=== PATIENT | female | born 1990 | race Asian ===

== ENCOUNTER 2017-06-29 18:17 | Emergency (ER) | payer SELFPAY, MEDICAID | END 2017-06-29 19:00 | disposition left against medical advice (07) | LOC: E/R 18:17 | DX: Z53.21 Procedure and treatment not carried out due to patient leaving prior to being seen by health care provider (principal) ==

== ENCOUNTER 2017-10-23 12:27 | Outpatient (CLI) | payer OTHER ==
[2017-10-23] MEDS: LACTATED RINGER'S 1,000 ML IV ×2 (14:18→16:36)
[2017-10-23] MEDS: ONDANSETRON 4 MG INJ IV (14:25)
[2017-10-23 14:53] LABS: ADD MAN DIFF? NO
[2017-10-23 14:56] LABS: BASOPHILS % 0.2 % (0.0-2.0); EOSINOPHILS % 0.4 % (0.0-7.0); HEMOGLOBIN 11.3 g/dl (12.0-16.0); LYMPHOCYTES # 2.1 10^3/ul (0.8-2.9); LYMPHOCYTES % 41.2 % (15.0-51.0); MEAN CORPUSCULAR HEMOGLOBIN 27.6 pg (29.0-33.0); MEAN CORPUSCULAR HGB CONC 33.2 g/dl (32.0-37.0); MEAN CORPUSCULAR VOLUME 83.1 fl (82.0-101.0); MEAN PLATELET VOLUME 10.4 fl (7.4-10.4); MONOCYTE # 0.4 10^3/ul (0.3-0.9); MONOCYTES % 7.1 % (0.0-11.0); NEUTROPHIL # 2.7 10^3/ul (1.6-7.5); NEUTROPHILS % 50.9 % (39.0-77.0); PLATELET COUNT 267 10^3/UL (140-415); RED BLOOD COUNT 4.09 10^6/ul (4.20-5.40); RED CELL DISTRIBUTION WIDTH 13.4 % (11.5-14.5)
[2017-10-23 14:56] LABS: WHITE BLOOD COUNT 5.2 10^3/ul (4.8-10.8)
[2017-10-23 15:14] LABS: ALANINE AMINOTRANSFERASE 10 IU/L (13-69); ALBUMIN 3.5 g/dl (3.3-4.9); ALBUMIN/GLOBULIN RATIO 1.12; ALKALINE PHOSPHATASE 120 IU/L (42-121); ANION GAP 13 (8-16); ASPARTATE AMINO TRANSFERASE 24 IU/L (15-46); BILIRUBIN,INDIRECT 0.3 mg/dl (0-1.1); BILIRUBIN,TOTAL 0.3 mg/dl (0.2-1.3); BLOOD UREA NITROGEN 3 mg/dl (7-20); CALCIUM 8.4 mg/dl (8.4-10.2); CARBON DIOXIDE 23 mmol/L (21-31); CHLORIDE 105 mmol/L (97-110); CREATININE 0.45 mg/dl (0.44-1.00); GLUCOSE 80 mg/dl (70-220); POTASSIUM 3.6 mmol/L (3.5-5.1); SODIUM 137 mmol/L (135-144); TOTAL PROTEIN 6.6 g/dl (6.1-8.1); URIC ACID 4.8 mg/dl (3.1-7.9)
[2017-10-23 15:17] LABS: ADD UMIC YES; UR ASCORBIC ACID NEGATIVE (NEGATIVE); UR BACTERIA FEW /HPF (NONE SEEN); UR BILIRUBIN (Dip) NEGATIVE (NEGATIVE); UR BLOOD (Dip) NEGATIVE (NEGATIVE); UR CLARITY SLIGHTLY CLOUDY (CLEAR); UR COLOR YELLOW (YELLOW); UR GLUCOSE (Dip) NEGATIVE (NEGATIVE); UR KETONES (Dip) NEGATIVE (NEGATIVE); UR LEUKOCYTE ESTERASE (Dip) TRACE Leu/ul (NEGATIVE); UR MUCUS MANY /HPF (NONE SEEN); UR NITRITE (Dip) NEGATIVE (NEGATIVE); UR RBC 2 /HPF (0-5); UR SQUAMOUS EPITHELIAL CELL MODERATE /HPF (FEW); UR TOTAL PROTEIN (Dip) 1+ mg/dl (NEGATIVE); UR UROBILINOGEN (Dip) 2+ mg/dL (NEGATIVE); UR WBC 6 /HPF (0-5)
[2017-10-23] MEDS ORDERED: PYRIDOXINE 100 MG INJ IM (16:30)
[2017-10-23] MEDS ORDERED: PYRIDOXINE 100 MG INJ IV (17:00)
[2017-10-23] MEDS ORDERED: PYRIDOXINE IM (17:00)
[2017-10-23] MEDS ORDERED: SOD CHLORIDE 0.9% IM (17:00)
[2017-10-23] MEDS: SOD CHLORIDE 0.9% IVPB (17:10)
[2017-10-23] MEDS: PYRIDOXINE IVPB (17:10)
[2017-10-23 18:28] LABS: AMPHETAMINE/METHAMPHETAMINE Negative (NEGATIVE); BARBITURATES Negative (NEGATIVE); BENZODIAZEPINES Negative (NEGATIVE); CANNABINOIDS Negative (NEGATIVE); COCAINE Negative (NEGATIVE); OPIATES Negative (NEGATIVE)
== END 2017-10-23 19:59 | disposition home or self-care (01) ==
LOC: OBT 12:27 → L-D 12:29 → OBT 19:59
DX: O40.2XX0 Polyhydramnios, second trimester, not applicable or unspecified (principal); O32.1XX0 Maternal care for breech presentation, not applicable or unspecified; O21.0 Mild hyperemesis gravidarum; Z3A.27 27 weeks gestation of pregnancy
CPT/HCPCS: 36415; 76818; 80053; 80307; 81001; 84560; 85025; 87086; 96360; 96361

== ENCOUNTER 2017-12-17 05:45 | Outpatient (CLI) | payer OTHER ==
[2017-12-17] MEDS: LACTATED RINGER'S 1,000 ML IV* ×2 (06:50→08:26)
[2017-12-17] MEDS: ONDANSETRON 4 MG INJ IV (06:51)
[2017-12-17 07:54] LABS: ADD UMIC NO; UR ASCORBIC ACID 20 mg/dL (NEGATIVE); UR BILIRUBIN (Dip) NEGATIVE (NEGATIVE); UR BLOOD (Dip) NEGATIVE (NEGATIVE); UR CLARITY CLEAR (CLEAR); UR COLOR YELLOW (YELLOW); UR GLUCOSE (Dip) NEGATIVE (NEGATIVE); UR KETONES (Dip) NEGATIVE (NEGATIVE); UR LEUKOCYTE ESTERASE (Dip) NEGATIVE Leu/ul (NEGATIVE); UR NITRITE (Dip) NEGATIVE (NEGATIVE); UR SPECIFIC GRAVITY (Dip) 1.011 (1.003-1.030); UR TOTAL PROTEIN (Dip) NEGATIVE (NEGATIVE); UR UROBILINOGEN (Dip) 1+ mg/dL (NEGATIVE)
[2017-12-17 08:26] LABS: RUPTURE FETAL MEMBRANES NEGATIVE (NEGATIVE)
== END 2017-12-17 10:01 | disposition home or self-care (01) ==
LOC: OBT 05:45 → L-D 05:45 → OBT 10:01
DX: O21.2 Late vomiting of pregnancy (principal); Z3A.35 35 weeks gestation of pregnancy
CPT/HCPCS: 36415; 76816; 76818; 81003; 84112; 87086; 96360; 96361

== ENCOUNTER 2017-12-17 10:34 | Emergency (ER) | payer OTHER ==
[2017-12-17] MEDS: ONDANSETRON 4 MG INJ IV (10:57)
[2017-12-17] MEDS: morphine 4 MG/ML VIAL IV ×2 (10:58→14:07)
[2017-12-17 11:08] LABS: ADD MAN DIFF? NO
[2017-12-17 11:10] LABS: BASOPHILS % 0.2 % (0.0-2.0); EOSINOPHILS % 0.2 % (0.0-7.0); HEMATOCRIT 35.4 % (37.0-47.0); HEMOGLOBIN 11.8 g/dl (12.0-16.0); LYMPHOCYTES # 1.6 10^3/ul (0.8-2.9); LYMPHOCYTES % 26.2 % (15.0-51.0); MEAN CORPUSCULAR HGB CONC 33.3 g/dl (32.0-37.0); MEAN PLATELET VOLUME 10.2 fl (7.4-10.4); MONOCYTE # 0.4 10^3/ul (0.3-0.9); MONOCYTES % 6.9 % (0.0-11.0); NEUTROPHIL # 4.1 10^3/ul (1.6-7.5); NEUTROPHILS % 66.2 % (39.0-77.0); PLATELET COUNT 250 10^3/UL (140-415); RED BLOOD COUNT 4.37 10^6/ul (4.20-5.40); RED CELL DISTRIBUTION WIDTH 13.7 % (11.5-14.5)
[2017-12-17 11:10] LABS: WHITE BLOOD COUNT 6.2 10^3/ul (4.8-10.8)
[2017-12-17 11:34] LABS: ALANINE AMINOTRANSFERASE 25 IU/L (13-69); ALBUMIN 3.1 g/dl (3.3-4.9); ALBUMIN/GLOBULIN RATIO 1.03; ALKALINE PHOSPHATASE 184 IU/L (42-121); ANION GAP 12 (8-16); ASPARTATE AMINO TRANSFERASE 13 IU/L (15-46); BILIRUBIN,INDIRECT 0.3 mg/dl (0-1.1); BILIRUBIN,TOTAL 0.3 mg/dl (0.2-1.3); BLOOD UREA NITROGEN 3 mg/dl (7-20); CALCIUM 8.6 mg/dl (8.4-10.2); CARBON DIOXIDE 24 mmol/L (21-31); CHLORIDE 107 mmol/L (97-110); CREATININE 0.49 mg/dl (0.44-1.00); GLUCOSE 96 mg/dl (70-220); LIPASE 46 U/L (23-300); POTASSIUM 3.7 mmol/L (3.5-5.1); SODIUM 139 mmol/L (135-144); TOTAL PROTEIN 6.1 g/dl (6.1-8.1)
== END 2017-12-18 10:09 | disposition home or self-care (01) ==
LOC: E/R 12-18 10:09
DX: O99.613 Diseases of the digestive system complicating pregnancy, third trimester (principal); K80.50 Calculus of bile duct without cholangitis or cholecystitis without obstruction; Z3A.35 35 weeks gestation of pregnancy
CPT/HCPCS: 36415; 76705; 80053; 83690; 85025; 96374; 96375; 96376; 99285-25

== ENCOUNTER 2017-12-20 13:45 | Inpatient (IN) | payer OTHER ==
[2017-12-20] MEDS: LACTATED RINGER'S 1,000 ML IV ×2 (14:11→17:51)
[2017-12-20] MEDS: BUTORPHANOL 2 MG INJ IV ×2 (14:16→16:42)
[2017-12-20] MEDS: DIPHENHYDRAMINE 50 MG CAP PO (18:30)
[2017-12-20] MEDS: MEPERIDINE 50 MG INJ IM (19:00)
[2017-12-20 19:34] LABS: ALANINE AMINOTRANSFERASE 30 IU/L (13-69); ALBUMIN 3.1 g/dl (3.3-4.9); ALKALINE PHOSPHATASE 222 IU/L (42-121); ASPARTATE AMINO TRANSFERASE 43 IU/L (15-46); BILIRUBIN,INDIRECT 0.5 mg/dl (0-1.1); TOTAL PROTEIN 6.3 g/dl (6.1-8.1)
[2017-12-20 19:39] LABS: AMYLASE < 30 U/L (11-123)
[2017-12-20 19:41] LABS: LIPASE 16 U/L (23-300)
[2017-12-20 21:56] LABS: ADD MAN DIFF? NO
[2017-12-20 21:59] LABS: EOSINOPHILS % 0.3 % (0.0-7.0); HEMATOCRIT 36.8 % (37.0-47.0); LYMPHOCYTES # 1.2 10^3/ul (0.8-2.9); LYMPHOCYTES % 19.1 % (15.0-51.0); MEAN CORPUSCULAR HEMOGLOBIN 26.5 pg (29.0-33.0); MEAN CORPUSCULAR HGB CONC 32.6 g/dl (32.0-37.0); MEAN CORPUSCULAR VOLUME 81.2 fl (82.0-101.0); MEAN PLATELET VOLUME 10.8 fl (7.4-10.4); MONOCYTE # 0.4 10^3/ul (0.3-0.9); MONOCYTES % 6.7 % (0.0-11.0); NEUTROPHIL # 4.5 10^3/ul (1.6-7.5); NEUTROPHILS % 73.6 % (39.0-77.0); PLATELET COUNT 292 10^3/UL (140-415); RED BLOOD COUNT 4.53 10^6/ul (4.20-5.40); RED CELL DISTRIBUTION WIDTH 13.9 % (11.5-14.5)
[2017-12-20 21:59] LABS: WHITE BLOOD COUNT 6.1 10^3/ul (4.8-10.8)
[2017-12-20] MEDS ORDERED: OXYTOCIN 30 UNITS/LR 500 ML IV ×2 (22:00)
[2017-12-20] MEDS ORDERED: CARBOPROST 250 MCG INJ IM (22:00)
[2017-12-20] MEDS ORDERED: METHYLERGONOVINE 0.2 MG INJ IM (22:00)
[2017-12-20] MEDS ORDERED: MISOPROSTOL 200 MCG TAB PR (22:00)
[2017-12-20] MEDS ORDERED: LIDOCAINE 1% (MPF) 30 ML INJ INJ (22:00)
[2017-12-20] MEDS ORDERED: IBUPROFEN 600 MG TAB PO (22:00)
[2017-12-20 22:03] LABS: INR 0.94; PARTIAL THROMBOPLASTIN TIME 35.4 Sec (25.0-35.0); PROTIME 12.7 Sec (11.9-14.9)
[2017-12-20 22:12] LABS: ADD UMIC YES; UR ASCORBIC ACID 40 mg/dL (NEGATIVE); UR BACTERIA FEW /HPF (NONE SEEN); UR BILIRUBIN (Dip) 2+ mg/dL (NEGATIVE); UR BLOOD (Dip) NEGATIVE (NEGATIVE); UR CLARITY CLEAR (CLEAR); UR COLOR AMBER (YELLOW); UR GLUCOSE (Dip) NEGATIVE (NEGATIVE); UR KETONES (Dip) 2+ mg/dL (NEGATIVE); UR LEUKOCYTE ESTERASE (Dip) NEGATIVE Leu/ul (NEGATIVE); UR MUCUS FEW /HPF (NONE SEEN); UR NITRITE (Dip) NEGATIVE (NEGATIVE); UR RBC 1 /HPF (0-5); UR SQUAMOUS EPITHELIAL CELL FEW /HPF (FEW); UR TOTAL PROTEIN (Dip) 1+ mg/dl (NEGATIVE); UR UROBILINOGEN (Dip) 2+ mg/dL (NEGATIVE); UR WBC 6 /HPF (0-5)
[2017-12-20] MEDS: DEXTROSE 5% IVPB (22:33)
[2017-12-20] MEDS: PENICILLIN K IVPB (22:33)
[2017-12-20 22:39] LABS: HEPATITIS B SURFACE ANTIGEN NEGATIVE (NEGATIVE)
[2017-12-20] MEDS: morphine 2 MG INJ IV (23:20)
[2017-12-20] MEDS: ONDANSETRON 4 MG INJ IV (23:38)
[2017-12-21] MEDS: BETAMET NA PHOS/AC(6 MG/ML) 5ML INJ IM (01:02)
[2017-12-21] MEDS: DEXTROSE 5% IVPB ×3 (02:45→10:51)
[2017-12-21] MEDS: PENICILLIN K IVPB ×3 (02:45→10:51)
[2017-12-21] MEDS: LACTATED RINGER'S 1,000 ML IV ×4 (03:16→08:58)
[2017-12-21] MEDS ORDERED: FENTAnyl 2MCG/ML-ROPIV 0.2% 100 ML (03:48)
[2017-12-21] MEDS ORDERED: MISOPROSTOL 200 MCG TAB PR (07:30)
[2017-12-21] MEDS ORDERED: METHYLERGONOVINE 0.2 MG INJ IM (07:30)
[2017-12-21 10:17] LABS: ADD MAN DIFF? NO
[2017-12-21 10:19] LABS: WHITE BLOOD COUNT 4.1 10^3/ul (4.8-10.8)
[2017-12-21 10:19] LABS: HEMATOCRIT 35.8 % (37.0-47.0); HEMOGLOBIN 11.8 g/dl (12.0-16.0); LYMPHOCYTES # 0.9 10^3/ul (0.8-2.9); LYMPHOCYTES % 21.7 % (15.0-51.0); MEAN CORPUSCULAR HEMOGLOBIN 26.6 pg (29.0-33.0); MEAN CORPUSCULAR VOLUME 80.8 fl (82.0-101.0); MEAN PLATELET VOLUME 10.1 fl (7.4-10.4); MONOCYTE # 0.1 10^3/ul (0.3-0.9); MONOCYTES % 2.7 % (0.0-11.0); NEUTROPHIL # 3.1 10^3/ul (1.6-7.5); NEUTROPHILS % 75.1 % (39.0-77.0); PLATELET COUNT 282 10^3/UL (140-415); RED BLOOD COUNT 4.43 10^6/ul (4.20-5.40); RED CELL DISTRIBUTION WIDTH 13.6 % (11.5-14.5)
[2017-12-21] MEDS: OXYTOCIN 30 UNITS/LR 500 ML IV ×3 (10:30→16:45)
[2017-12-21 10:52] LABS: LACTIC ACID 1.2 mmol/L (0.5-2.0)
[2017-12-21] MEDS ORDERED: DIBUCAINE 1% 30 GM OINT TOP (13:30)
[2017-12-21] MEDS ORDERED: OXYCODONE/ASPIRIN (4.88/325) TAB PO (13:30)
[2017-12-21] MEDS ORDERED: ACETAMINOPHEN 325 MG TAB PO (13:30)
[2017-12-21] MEDS ORDERED: BENZOCAINE 20% 56 ML SPRAY TOP (13:30)
[2017-12-21] MEDS ORDERED: ONDANSETRON 4 MG INJ IV (13:30)
[2017-12-21] MEDS ORDERED: LANOLIN 7 GM TUBE TOP (13:30)
[2017-12-21] MEDS ORDERED: HYDROCODONE/APAP (5/325) TAB PO (13:30)
[2017-12-21] MEDS ORDERED: WITCH HAZEL/GLYCERIN PAD PR (13:30)
[2017-12-21] MEDS: OXYCODONE/ASPIRIN (4.88/325) TAB PO (13:44)
[2017-12-21] MEDS: IBUPROFEN 600 MG TAB PO ×2 (18:00→23:54)
[2017-12-21] MEDS: SENNA/DOCUSATE NA (8.6MG/50MG) TAB PO (21:40)
[2017-12-21 22:07] LABS: RAPID PLASMA REAGIN NONREACTIVE (NR)
[2017-12-22] MEDS ORDERED: BETAMET NA PHOS/AC(6 MG/ML) 5ML INJ IM
[2017-12-22] MEDS: OXYCODONE/ASPIRIN (4.88/325) TAB PO ×3 (04:10→17:02)
[2017-12-22] MEDS: IBUPROFEN 600 MG TAB PO ×3 (06:01→17:41)
[2017-12-22] MEDS: SENNA/DOCUSATE NA (8.6MG/50MG) TAB PO ×2 (11:24→21:00)
[2017-12-22] MEDS: HYDROCODONE/APAP (5/325) TAB PO (11:27)
[2017-12-22] MEDS ORDERED: LACTATED RINGER'S 1,000 ML IV (18:00)
[2017-12-22] MEDS: BUTORPHANOL 2 MG INJ IV (18:03)
[2017-12-22] MEDS: DEXTROSE 5%-0.45% NACL 1,000 ML IV (18:32)
[2017-12-22] MEDS: PIPER-TAZO 3.375 GM IV (PMX) 100 ML IVPB (18:32)
[2017-12-22] MEDS: morphine 2 MG INJ IV (22:26)
[2017-12-23] MEDS: DEXTROSE 5%-0.45% NACL 1,000 ML IV ×2 (05:01→15:40)
[2017-12-23] MEDS: IBUPROFEN 600 MG TAB PO ×4 (05:55→17:39)
[2017-12-23] MEDS: PIPER-TAZO 3.375 GM IV (PMX) 100 ML IVPB ×5 (06:00→23:47)
[2017-12-23] MEDS: morphine 2 MG INJ IV ×6 (07:40→23:37)
[2017-12-23] MEDS: MEASLES,MUMPS,RUBELLA VACCINE INJ SC* (09:00)
[2017-12-23] MEDS: SENNA/DOCUSATE NA (8.6MG/50MG) TAB PO ×2 (09:00→21:00)
[2017-12-23 09:14] LABS: ADD MAN DIFF? NO
[2017-12-23 09:23] LABS: BASOPHILS % 0.3 % (0.0-2.0); EOSINOPHILS % 0.3 % (0.0-7.0); HEMOGLOBIN 11.5 g/dl (12.0-16.0); LYMPHOCYTES # 1.2 10^3/ul (0.8-2.9); LYMPHOCYTES % 33.1 % (15.0-51.0); MEAN CORPUSCULAR HEMOGLOBIN 25.7 pg (29.0-33.0); MEAN CORPUSCULAR HGB CONC 31.9 g/dl (32.0-37.0); MEAN CORPUSCULAR VOLUME 80.4 fl (82.0-101.0); MEAN PLATELET VOLUME 10.1 fl (7.4-10.4); MONOCYTE # 0.4 10^3/ul (0.3-0.9); MONOCYTES % 10.1 % (0.0-11.0); NEUTROPHILS % 55.6 % (39.0-77.0); PLATELET COUNT 324 10^3/UL (140-415); RED BLOOD COUNT 4.48 10^6/ul (4.20-5.40); RED CELL DISTRIBUTION WIDTH 14.1 % (11.5-14.5)
[2017-12-23 09:23] LABS: WHITE BLOOD COUNT 3.6 10^3/ul (4.8-10.8)
[2017-12-23 09:42] LABS: ALANINE AMINOTRANSFERASE 61 IU/L (13-69); ALBUMIN 2.6 g/dl (3.3-4.9); ALBUMIN/GLOBULIN RATIO 0.89; ALKALINE PHOSPHATASE 209 IU/L (42-121); ANION GAP 13 (8-16); ASPARTATE AMINO TRANSFERASE 84 IU/L (15-46); BILIRUBIN,INDIRECT 0.3 mg/dl (0-1.1); BILIRUBIN,TOTAL 0.3 mg/dl (0.2-1.3); BLOOD UREA NITROGEN 5 mg/dl (7-20); CALCIUM 8.1 mg/dl (8.4-10.2); CARBON DIOXIDE 26 mmol/L (21-31); CHLORIDE 105 mmol/L (97-110); CREATININE 0.62 mg/dl (0.44-1.00); GLUCOSE 83 mg/dl (70-220); POTASSIUM 3.5 mmol/L (3.5-5.1); SODIUM 140 mmol/L (135-144); TOTAL PROTEIN 5.5 g/dl (6.1-8.1)
[2017-12-23 09:42] LABS: MAGNESIUM 1.6 mg/dl (1.7-2.5)
[2017-12-23 09:47] LABS: LACTIC ACID 1.3 mmol/L (0.5-2.0)
[2017-12-23 10:10] LABS: HAAIG REFLEX REFLEX FILED
[2017-12-23 10:55] LABS: HEPATITIS B SURFACE ANTIGEN NEGATIVE (NEGATIVE)
[2017-12-23 11:12] LABS: HEPATITIS B CORE ANTIBODY NEGATIVE (NEGATIVE); HEPATITIS C VIRAL ANTIBODY NEGATIVE (NEGATIVE)
[2017-12-23] MEDS: MAGNESIUM SULFATE 2 GM/50 ML 50 ML IVPB (12:42)
[2017-12-23 15:25] LABS: LIPASE 1841 U/L (23-300)
[2017-12-23] MEDS: SOD CHLORIDE 0.45% 1,000 ML IV ×2 (18:18→23:15)
[2017-12-24] MEDS: morphine 2 MG INJ IV ×4 (04:26→14:33)
[2017-12-24] MEDS: SOD CHLORIDE 0.45% 1,000 ML IV ×2 (04:27→09:21)
[2017-12-24] MEDS: PIPER-TAZO 3.375 GM IV (PMX) 100 ML IVPB ×3 (06:00→18:04)
[2017-12-24] MEDS: IBUPROFEN 600 MG TAB PO ×4 (06:00→18:00)
[2017-12-24 06:20] LABS: ADD MAN DIFF? NO
[2017-12-24 06:29] LABS: BASOPHILS % 0.2 % (0.0-2.0); EOSINOPHILS % 0.4 % (0.0-7.0); HEMATOCRIT 35.9 % (37.0-47.0); HEMOGLOBIN 11.6 g/dl (12.0-16.0); LYMPHOCYTES # 2.2 10^3/ul (0.8-2.9); LYMPHOCYTES % 41.4 % (15.0-51.0); MEAN CORPUSCULAR HEMOGLOBIN 26.3 pg (29.0-33.0); MEAN CORPUSCULAR HGB CONC 32.3 g/dl (32.0-37.0); MEAN CORPUSCULAR VOLUME 81.4 fl (82.0-101.0); MEAN PLATELET VOLUME 9.7 fl (7.4-10.4); MONOCYTE # 0.5 10^3/ul (0.3-0.9); MONOCYTES % 8.9 % (0.0-11.0); NEUTROPHIL # 2.6 10^3/ul (1.6-7.5); NEUTROPHILS % 48.7 % (39.0-77.0); PLATELET COUNT 320 10^3/UL (140-415); RED BLOOD COUNT 4.41 10^6/ul (4.20-5.40); RED CELL DISTRIBUTION WIDTH 13.7 % (11.5-14.5)
[2017-12-24 06:29] LABS: WHITE BLOOD COUNT 5.3 10^3/ul (4.8-10.8)
[2017-12-24 06:57] LABS: LIPASE 233 U/L (23-300)
[2017-12-24 06:58] LABS: ALANINE AMINOTRANSFERASE 83 IU/L (13-69); ALBUMIN 2.7 g/dl (3.3-4.9); ALBUMIN/GLOBULIN RATIO 0.93; ALKALINE PHOSPHATASE 195 IU/L (42-121); ANION GAP 13 (8-16); ASPARTATE AMINO TRANSFERASE 94 IU/L (15-46); BILIRUBIN,INDIRECT 0.3 mg/dl (0-1.1); BILIRUBIN,TOTAL 0.3 mg/dl (0.2-1.3); BLOOD UREA NITROGEN 6 mg/dl (7-20); CALCIUM 8.1 mg/dl (8.4-10.2); CARBON DIOXIDE 27 mmol/L (21-31); CHLORIDE 103 mmol/L (97-110); CREATININE 0.67 mg/dl (0.44-1.00); GLUCOSE 80 mg/dl (70-220); POTASSIUM 3.8 mmol/L (3.5-5.1); SODIUM 139 mmol/L (135-144); TOTAL PROTEIN 5.6 g/dl (6.1-8.1)
[2017-12-24 07:00] LABS: ANION GAP 9 (8-16); BLOOD UREA NITROGEN 4 mg/dl (7-20); CALCIUM 8.3 mg/dl (8.4-10.2); CARBON DIOXIDE 28 mmol/L (21-31); CHLORIDE 104 mmol/L (97-110); CREATININE 0.66 mg/dl (0.44-1.00); GLUCOSE 77 mg/dl (70-220); MAGNESIUM 1.9 mg/dl (1.7-2.5); PHOSPHORUS 5.2 mg/dl (2.5-4.9); POTASSIUM 3.9 mmol/L (3.5-5.1); SODIUM 137 mmol/L (135-144)
[2017-12-24] MEDS: SENNA/DOCUSATE NA (8.6MG/50MG) TAB PO ×2 (09:00→23:45)
[2017-12-24] MEDS: DEXTROSE 5%-0.45% NACL 1,000 ML IV (12:59)
[2017-12-24] MEDS ORDERED: PROPOFOL 20 ML (21:39)
[2017-12-24] MEDS ORDERED: LIDOCAINE 2% (SDV) 5 ML INJ (21:39)
[2017-12-24] MEDS ORDERED: ROCURONIUM 50 MG INJ (21:39)
[2017-12-24] MEDS ORDERED: HYDROmorphONE 2 MG/ML SYG (21:40)
[2017-12-24] MEDS ORDERED: CEFAZOLIN 1 GM INJ (21:50)
[2017-12-24] MEDS ORDERED: ONDANSETRON 4 MG INJ (21:50)
[2017-12-24] MEDS ORDERED: DEXAMETHASONE 4 MG/ML 1 ML INJ (21:50)
[2017-12-24] MEDS ORDERED: ACETAMINOPHEN 1000MG/100ML IV 100 ML (22:09)
[2017-12-24] MEDS ORDERED: ROPIVACAINE 0.5 % 30 ML VIAL (22:12)
[2017-12-24] MEDS ORDERED: SCOPOLAMINE 1.5 MG PATCH (22:21)
[2017-12-24] MEDS ORDERED: SUGAMMADEX SODIUM 200 MG/2 ML VIAL IV (22:38)
[2017-12-24] MEDS ORDERED: HYDROmorphONE 1 MG/5 ML IV SYRINGE IV (23:00)
[2017-12-24] MEDS ORDERED: ONDANSETRON 4 MG INJ IV ×2 (23:00)
[2017-12-24] MEDS ORDERED: morphine 2 MG INJ IV (23:00)
[2017-12-24] MEDS ORDERED: OXYCODONE/ACETAMINOPHEN (5/325) TAB PO (23:00)
[2017-12-25] MEDS: HYDROmorphONE 1 MG/5 ML IV SYRINGE IV (00:12)
[2017-12-25] MEDS: DEXTROSE 5%-0.45% NACL 1,000 ML IV ×3 (01:20→09:32)
[2017-12-25] MEDS: PIPER-TAZO 3.375 GM IV (PMX) 100 ML IVPB ×2 (01:23→06:22)
[2017-12-25] MEDS: IBUPROFEN 600 MG TAB PO ×3 (01:30→12:56)
[2017-12-25 01:45] LABS: ALANINE AMINOTRANSFERASE 112 IU/L (13-69); ALBUMIN 3.2 g/dl (3.3-4.9); ALKALINE PHOSPHATASE 226 IU/L (42-121); ANION GAP 14 (8-16); ASPARTATE AMINO TRANSFERASE 138 IU/L (15-46); BILIRUBIN,INDIRECT 0.2 mg/dl (0-1.1); BILIRUBIN,TOTAL 0.2 mg/dl (0.2-1.3); BLOOD UREA NITROGEN 6 mg/dl (7-20); CALCIUM 8.5 mg/dl (8.4-10.2); CARBON DIOXIDE 25 mmol/L (21-31); CHLORIDE 105 mmol/L (97-110); CREATININE 0.55 mg/dl (0.44-1.00); GLUCOSE 103 mg/dl (70-220); POTASSIUM 3.6 mmol/L (3.5-5.1); SODIUM 140 mmol/L (135-144); TOTAL PROTEIN 6.4 g/dl (6.1-8.1)
[2017-12-25] MEDS: OXYCODONE/ACETAMINOPHEN (5/325) TAB PO (03:00)
[2017-12-25] MEDS: morphine 2 MG INJ IV (05:18)
[2017-12-25 05:57] LABS: ADD MAN DIFF? NO
[2017-12-25 06:07] LABS: WHITE BLOOD COUNT 7.8 10^3/ul (4.8-10.8)
[2017-12-25 06:07] LABS: HEMOGLOBIN 12.2 g/dl (12.0-16.0); LYMPHOCYTES # 1.1 10^3/ul (0.8-2.9); LYMPHOCYTES % 13.5 % (15.0-51.0); MEAN CORPUSCULAR HEMOGLOBIN 25.9 pg (29.0-33.0); MEAN CORPUSCULAR HGB CONC 32.1 g/dl (32.0-37.0); MEAN CORPUSCULAR VOLUME 80.7 fl (82.0-101.0); MEAN PLATELET VOLUME 9.9 fl (7.4-10.4); MONOCYTE # 0.1 10^3/ul (0.3-0.9); MONOCYTES % 1.3 % (0.0-11.0); NEUTROPHIL # 6.6 10^3/ul (1.6-7.5); PLATELET COUNT 356 10^3/UL (140-415); RED BLOOD COUNT 4.71 10^6/ul (4.20-5.40); RED CELL DISTRIBUTION WIDTH 13.6 % (11.5-14.5)
[2017-12-25 06:35] LABS: ALANINE AMINOTRANSFERASE 112 IU/L (13-69); ALBUMIN 3.3 g/dl (3.3-4.9); ALBUMIN/GLOBULIN RATIO 1.06; ALKALINE PHOSPHATASE 224 IU/L (42-121); ANION GAP 12 (8-16); ASPARTATE AMINO TRANSFERASE 144 IU/L (15-46); BILIRUBIN,INDIRECT 0.1 mg/dl (0-1.1); BILIRUBIN,TOTAL 0.1 mg/dl (0.2-1.3); BLOOD UREA NITROGEN 5 mg/dl (7-20); CALCIUM 8.6 mg/dl (8.4-10.2); CARBON DIOXIDE 26 mmol/L (21-31); CHLORIDE 103 mmol/L (97-110); CREATININE 0.58 mg/dl (0.44-1.00); GLUCOSE 126 mg/dl (70-220); POTASSIUM 3.7 mmol/L (3.5-5.1); SODIUM 137 mmol/L (135-144); TOTAL PROTEIN 6.4 g/dl (6.1-8.1)
[2017-12-25 06:38] LABS: LIPASE 225 U/L (23-300)
[2017-12-25 07:39] LABS: ANION GAP 18 (8-16); BLOOD UREA NITROGEN 7 mg/dl (7-20); CALCIUM 8.6 mg/dl (8.4-10.2); CARBON DIOXIDE 23 mmol/L (21-31); CHLORIDE 102 mmol/L (97-110); CREATININE 0.57 mg/dl (0.44-1.00); GLUCOSE 128 mg/dl (70-220); MAGNESIUM 1.9 mg/dl (1.7-2.5); PHOSPHORUS 5.1 mg/dl (2.5-4.9); POTASSIUM 3.7 mmol/L (3.5-5.1); SODIUM 139 mmol/L (135-144)
[2017-12-25] MEDS: SENNA/DOCUSATE NA (8.6MG/50MG) TAB PO (09:08)
[2017-12-25 12:21] LABS: PROCALCITONIN 0.11 ng/mL (<0.10)
== END 2017-12-25 13:05 | disposition home or self-care (01) | DRG 987 ==
LOC: OBT 13:45 → L-D 13:45 → PP1 12-21 13:15 → MS3 12-25 02:58 → OBT 22:08 → L-D 21:13 → MS1 12-25 09:46
PROVIDERS: Obstetrics & Gynecology
PROC: 0FT44ZZ Resection of Gallbladder, Percutaneous Endoscopic Approach (ICD-10-PCS; 2017-12-24 20:30)
PROC: 10E0XZZ Delivery of Products of Conception, External Approach (ICD-10-PCS; principal; 2017-12-24 21:34)
DX: O99.62 Diseases of the digestive system complicating childbirth (principal); K85.10 Biliary acute pancreatitis without necrosis or infection; K80.00 Calculus of gallbladder with acute cholecystitis without obstruction; Z3A.35 35 weeks gestation of pregnancy; Z37.0 Single live birth; O60.14X0 Preterm labor third trimester with preterm delivery third trimester, not applicable or unspecified; O99.214 Obesity complicating childbirth; Z68.31 Body mass index [BMI] 31.0-31.9, adult
CPT/HCPCS: 62319; 74181; 76705; 76818; 78226; 80048; 80053; 80076; 81001; 82150; 83605; 83690; 83735; 84100; 84145; 85025; 85610; 85730; 86592; 86704; 86709; 86803; 86850; 86900; 86901; 87086; 87340; 88304; 96360; 96361; 96372; 96374; 99464

== ENCOUNTER 2018-03-15 13:41 | Emergency (ER) | payer OTHER | END 2018-03-15 15:22 | disposition home or self-care (01) | LOC: FTE 13:41 | DX: S50.02XA Contusion of left elbow, initial encounter (principal); S80.212A Abrasion, left knee, initial encounter; W01.0XXA Fall on same level from slipping, tripping and stumbling without subsequent striking against object, initial encounter; Y92.9 Unspecified place or not applicable | CPT/HCPCS: 73080; 73080-LT; 73090; 99283-25 ==

== ENCOUNTER 2018-11-26 09:39 | Emergency (ER) | payer OTHER ==
[2018-11-26] MEDS: ONDANSETRON 4 MG INJ IV (11:28)
[2018-11-26] MEDS: SOD CHLORIDE 0.9% 1,000 ML IV (11:28)
[2018-11-26] MEDS: morphine 4 MG/ML VIAL IV (11:28)
[2018-11-26 11:39] LABS: ADD MAN DIFF? NO
[2018-11-26 11:41] LABS: WHITE BLOOD COUNT 6.5 10^3/ul (4.8-10.8)
[2018-11-26 11:41] LABS: BASOPHILS % 0.3 % (0.0-2.0); EOSINOPHILS # 0.2 10^3/ul (0.0-0.5); EOSINOPHILS % 2.8 % (0.0-7.0); HEMATOCRIT 41.1 % (37.0-47.0); HEMOGLOBIN 13.2 g/dl (12.0-16.0); LYMPHOCYTES % 30.1 % (15.0-51.0); MEAN CORPUSCULAR HGB CONC 32.1 g/dl (32.0-37.0); MEAN CORPUSCULAR VOLUME 84.2 fl (82.0-101.0); MEAN PLATELET VOLUME 10.1 fl (7.4-10.4); MONOCYTE # 0.6 10^3/ul (0.3-0.9); MONOCYTES % 8.4 % (0.0-11.0); NEUTROPHIL # 3.8 10^3/ul (1.6-7.5); NEUTROPHILS % 58.2 % (39.0-77.0); PLATELET COUNT 263 10^3/UL (140-415); RED BLOOD COUNT 4.88 10^6/ul (4.20-5.40); RED CELL DISTRIBUTION WIDTH 13.6 % (11.5-14.5)
[2018-11-26 11:53] LABS: ADD UMIC YES; UR ASCORBIC ACID NEGATIVE (NEGATIVE); UR BACTERIA FEW /HPF (NONE SEEN); UR BILIRUBIN (Dip) NEGATIVE (NEGATIVE); UR BLOOD (Dip) NEGATIVE (NEGATIVE); UR CLARITY CLOUDY (CLEAR); UR COLOR YELLOW (YELLOW); UR GLUCOSE (Dip) NEGATIVE (NEGATIVE); UR KETONES (Dip) NEGATIVE (NEGATIVE); UR LEUKOCYTE ESTERASE (Dip) TRACE Leu/ul (NEGATIVE); UR MUCUS MODERATE /HPF (NONE SEEN); UR NITRITE (Dip) NEGATIVE (NEGATIVE); UR RBC 1 /HPF (0-5); UR RENAL EPITHELIAL CELL FEW /HPF (NONE SEEN); UR SPECIFIC GRAVITY (Dip) 1.023 (1.003-1.030); UR SQUAMOUS EPITHELIAL CELL MANY /HPF (FEW); UR TOTAL PROTEIN (Dip) NEGATIVE (NEGATIVE); UR UROBILINOGEN (Dip) NEGATIVE (NEGATIVE); UR WBC 3 /HPF (0-5)
[2018-11-26 12:03] LABS: ALANINE AMINOTRANSFERASE 41 IU/L (13-69); ALBUMIN 4.2 g/dl (3.3-4.9); ALBUMIN/GLOBULIN RATIO 1.27; ALKALINE PHOSPHATASE 119 IU/L (42-121); ANION GAP 10 (5-13); ASPARTATE AMINO TRANSFERASE 27 IU/L (15-46); BILIRUBIN,INDIRECT 0.4 mg/dl (0-1.1); BILIRUBIN,TOTAL 0.4 mg/dl (0.2-1.3); BLOOD UREA NITROGEN 8 mg/dl (7-20); CARBON DIOXIDE 26 mmol/L (21-31); CHLORIDE 107 mmol/L (97-110); CREATININE 0.67 mg/dl (0.44-1.00); Estimated GFR > 60 mL/min (>60); GLUCOSE 94 mg/dl (70-220); LIPASE 95 U/L (23-300); POTASSIUM 3.8 mmol/L (3.5-5.1); SODIUM 143 mmol/L (135-144); TOTAL PROTEIN 7.5 g/dl (6.1-8.1)
[2018-11-26 12:14] LABS: TROPONIN-I < 0.012 ng/ml (0.000-0.120)
[2018-11-26] MEDS: SOD CHLORIDE 0.9% 100 ML (12:32)
[2018-11-26] MEDS: IOHEXOL 300MG/ML 150 ML BTL (12:33)
[2018-11-26] MEDS: morphine 2 MG INJ IV (14:02)
== END 2018-11-26 14:16 | disposition home or self-care (01) ==
LOC: FTE 14:16
DX: K52.9 Noninfective gastroenteritis and colitis, unspecified (principal); J18.1 Lobar pneumonia, unspecified organism
CPT/HCPCS: 36415; 71045; 74177; 80053; 81001; 81025; 83690; 84484; 85025; 96361; 96374; 96375; 96376; 99285-25